=== PATIENT | female | born 1995 | race Caucasian/White ===

== ENCOUNTER 2020-02-09 16:56 | Emergency (ER) | payer OTHER ==
[~2020-02-09] VITALS: Ht 162.6 cm; Wt 56.1 kg
[2020-02-09] MEDS ORDERED: OMEP40CA97 PO (17:06)
[2020-02-09] MEDS ORDERED: ONDANSETRON 4MG/2ML VIAL IV ONE (18:15)
[2020-02-09 18:21] LABS: BASO # 0.1 10^3/uL (0.0-0.2); BASO % 0.8 % (0.0-1.0); EOS # 0.2 10^3/uL (0.0-0.5); HEMATOCRIT 41.6 % (36.0-47.0); HEMOGLOBIN 13.9 g/dl (12.0-15.5); LYMPH # 1.7 10^3/uL (1.5-5.0); LYMPH % 20.1 % (24.0-44.0); MEAN CORPUSCULAR HEMOGLOBIN 29.8 pg (27.0-33.0); MEAN CORPUSCULAR HGB CONC 33.4 g/dl (32.0-36.5); MEAN CORPUSCULAR VOLUME 89.3 fl (80.0-96.0); MONO # 0.5 10^3/uL (0.0-0.8); MONO % 6.3 % (0.0-5.0); NEUTROPHILS # 5.9 10^3/uL (1.5-8.5); NEUTROPHILS % 70.6 % (36.0-66.0); PLATELET COUNT, AUTOMATED 230 10^3/uL (150-450); RED BLOOD COUNT 4.66 10^6/uL (4.00-5.40); WHITE BLOOD COUNT 8.4 10^3/uL (4.0-10.0)
[2020-02-09 18:49] LABS: ALBUMIN 4.4 GM/DL (3.2-5.2); BILIRUBIN,DIRECT 0.2 MG/DL (0.0-0.2); BILIRUBIN,TOTAL 0.4 MG/DL (0.2-1.0)
[2020-02-09] MEDS ORDERED: ONDA4TAB6 PO ×2 (19:53→19:56)
[2020-02-09 19:54] VITALS: BP 130/77
--- NOTE | 2020-02-09 21:41 | ECGEPIP ---
[facility] - ED Test Date: 2020-02-09 Pat Name: AVIVA GLYNN Department: Room: - Gender: Female [employer]ter [employer] Machine: ANEESH : 1995 Requested By: Claudette Prabhakar Order Number: [id number] Reading MD: Luma Roque Measurements Intervals [place] Rate: 79 P: 78 VA: 179 QRS: 92 QRSD: 100 T: 55 QT: 389 QTc: 447 Interpretive Statements SINUS RHYTHM WITH OCCASIONAL ECTOPIC PREMATURE COMPLEXES POSSIBLE RIGHT ATRIAL ENLARGEMENT LEFT ATRIAL ENLARGEMENT BORDERLINE RIGHT AXIS DEVIATION INCOMPLETE RIGHT BUNDLE BRANCH BLOCK NO PRIOR Electronically Signed on 02-09-2020 21:41:02 EDT by Luma Roque
== END 2020-02-09 20:00 | disposition home or self-care (01) ==
LOC: M ED 16:56
DX: R55 Syncope and collapse (principal); K90.41 Non-celiac gluten sensitivity
CPT/HCPCS: 80047; 80076; 81001; 83690; 84702; 85025; 93005; 96374; 99284; J2405